=== PATIENT | male | born 1955 | race Caucasian/White ===

== ENCOUNTER 2016-12-09 10:33 | Inpatient (IN) ==
--- NOTE | 2016-12-09 11:01 | PROVIDER DOCUMENTATION ---
HPI-General Adult - General Chief Complaint: Weakness Stated Complaint: CHILLS Time Seen by Provider: 12/09/16 10:58 Source: patient Allergies/Adverse Reactions: Patient Allergies Allergy/AdvReac Type Severity Reaction Status Date / Time No Known Allergies Allergy Verified 12/09/16 10:45 - History of Present Illness -Gen Adult Nature of Presenting Problems: patient is a 61 yo/ M that presents to the ER with generalized weakness, body aches, and chills x 1 week. No fever, n/v/d, or cough. Reports out of Metformin. Poor appetite but has been thirsty more than normal. Location of Pain/Injury: reports: generalized Quality of Pain: reports: aching Severity: reports: moderate Onset/Duration: reports: gradual, 1 week ago Timing: reports: still present, getting worse Context/Activities at Onset: reports: none Modifying Factors: improves with: nothing Associated Symptoms: reports: dizziness, fever/chills (chills), muscle aches, weakness. denies: chest pain, diarrhea, genitourinary problems, headaches, nausea, shortness of breath, vomiting Similar Symptoms Previously?: No Recently seen or treated by another doctor?: No Review of Systems - Adult - REVIEW OF SYSTEMS - ADULT Constitutional: reports: chills. denies: fever Eyes: reports: no symptoms reported Ears, Nose, Mouth & Throat: reports: no symptoms reported Cardiovascular: denies: chest pain, orthopnea, palpitations Respiratory: denies: cough, shortness of breath, wheezing Gastrointestinal: reports: abdominal pain. denies: diarrhea, nausea, vomiting Genitourinary: reports: no symptoms reported Musculoskeletal: reports: muscle aches, muscle weakness Integumentary: reports: no symptoms reported Neurological: reports: dizziness/vertigo. denies: headache/migraines, loss of balance, numbness Psychiatric: reports: no symptoms reported Endocrine: reports: increased thirst. denies: polyuria Hematologic/Lymphatic: reports: no symptoms reported Allergic/Immunologic: reports: no symptoms reported All Other Systems: Reviewed and Negative Past History - Adult - PAST MEDICAL HISTORY-ADULT Review of Records: reports: Old Records Reviewed, Nursing Assessment Review, Medications Reviewed Endocrine/Immune: reports: Diabetes - PRIOR SURGERIES/PROCEDURES Surgical/Procedure History: reports: none - IMMUNIZATION STATUS Childhood Immunizations: See Nurse Assessment Flu Vaccine: See Nurse Assessment - FAMILY HISTORY Family History: reviewed, not pertinent - SOCIAL HISTORY Smoking: cigarettes, greater than 1 pack/day Provider spent 3-5 mins advising pt. on dangers of tobacco.: Discussed manners to quit use, and f/u contacts for add'l counseling. Living Situation: family Physical Exam-General - PHYSICAL EXAM-ADULT Initial Vital Signs Reviewed: Yes - CONSTITUTIONAL General Appearance: alert, mild distress, moderate distress - EYES Eyes: PERRL/EOMI, pink conjunctivae - HEAD, EARS, NOSE, MOUTH & THROAT HENMT: normocephalic/atraumatic, normal ENT inspection, other (dry oral mucosa) - NECK Neck: full range of motion, normal inspection - RESPIRATORY Respiratory: lungs clear, normal breath sounds, no respiratory distress, no accessory muscle use - CARDIOVASCULAR Cardiovascular: no JVD, no murmur, tachycardia - GASTROINTESTINAL (ABDOMEN) Abdominal Exam: normal bowel sounds, non tender, soft, no organomegaly, no pulsatile mass - MUSCULOSKELETAL Back Exam: normal inspection, no vertebral tenderness Extremity: normal range of motion, normal inspection, no pedal edema - SKIN Integumentary: normal color, warm/dry - 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, no motor/sensory deficits - PSYCHIATRIC Psych/Mental Status: normal mood/affect, normal thought content, normal thought process, oriented x 3 Progress - PLAN OF CARE/RESULTS Progress/Plan/Lab Results: Vital Signs - 8 hr 12/09/16 10:40 Temperature 97.3 F L Pulse Rate 141 H Respiratory Rate 18 O2 Sat by Pulse Oximetry 99 Orders Category Date Time Status Cardiac Monitoring DIRECTED Care 12/09/16 10:47 Active Saline Loc NOW Care 12/09/16 10:47 Active CHEST-2 VIEWS [RAD] Stat Exams 12/09/16 10:47 Ordered BLOOD CULTURE [BLDCUL] Stat Lab 12/09/16 10:47 Ordered CBC WITH ELECTRONIC DIFF [HEME] Stat Lab 12/09/16 10:47 Ordered CK PROFILE [SP CHEM] Stat Lab 12/09/16 10:47 Ordered COMPREHENSIVE METABOLIC PANEL [CHEM] Stat Lab 12/09/16 10:47 Ordered LACTATE, PLASMA [CHEM] Stat Lab 12/09/16 10:47 Ordered MAGNESIUM [CHEM] Stat Lab 12/09/16 10:47 Ordered PRO B-NATRIURETIC PEPTIDE Stat Lab 12/09/16 10:[address] Or[address]IME WITH INR PL [COAG] Stat Lab 12/09/16 10:[address] [COAG] Stat Lab 12/09/16 10:47 Ordered TROPONIN T Stat Lab 12/09/16 10:[address] W/POSS RFLX CULT [URINALYSIS] Stat Lab 12/09/16 10:47 Uncollected EKG [EKG] Stat Ther 12/09/16 10:47 Ordered Vital Signs - 24 hr 12/09/16 10:40 12/09/16 10:45 12/09/16 11:00 Temperature 97.3 F L Pulse Rate 141 H 137 H 136 H Respiratory Rate 18 13 14 Blood Pressure 109/83 111/72 O2 Sat by Pulse Oximetry 99 100 99 12/09/16 11:26 Temperature Pulse Rate 132 H Respiratory Rate 16 Blood Pressure 106/77 O2 Sat by Pulse Oximetry 97 Orders Category Date Time Status Cardiac Monitoring DIRECTED Care 12/09/16 10:47 Active Saline Loc NOW Care 12/09/16 10:47 Active CHEST-2 VIEWS [RAD] Stat Exams 12/09/16 10:47 Completed BLOOD CULTURE [BLDCUL] Stat Lab 12/09/16 10:47 Ordered CBC WITH ELECTRONIC DIFF [HEME] Stat Lab 12/09/16 10:50 Completed CK PROFILE [SP CHEM] Stat Lab 12/09/16 10:50 Completed COMPREHENSIVE METABOLIC PANEL [CHEM] Stat Lab 12/09/16 10:50 Completed LACTATE, PLASMA [CHEM] Stat Lab 12/09/16 11:09 Completed MAGNESIUM [CHEM] Stat Lab 12/09/16 10:50 Completed PRO B-NATRIURETIC PEPTIDE Stat Lab 12/09/16 10:[address]IME WITH INR PL [COAG] Stat Lab 12/09/16 10:[address] [COAG] Stat Lab 12/09/16 10:50 Completed TROPONIN T Stat Lab 12/09/16 10:50 Completed TSH Stat Lab 12/09/16 10:[address] W/POSS RFLX CULT [URINALYSIS] Stat Lab 12/09/16 10:47 Uncollected 0.9% Sodium Chloride Inj [Ns] 1,000 ml Med 12/09/16 11:10 Discontinued .ROUTE As Directed 0.9% Sodium Chloride Inj [Ns] 1,000 ml Med 12/09/16 11:12 Active IV 999 mls/hr EKG [EKG] Stat Ther 12/09/16 10:47 Draft Laboratory Tests 12/09/16 12/09/16 12/09/16 10:50 10:50 10:50 WBC RBC Hgb Hct MCV MCH MCHC RDW Std Deviation Plt Count MPV Immature Gran % (Auto) Neut % (Auto) Lymph % (Auto) Cedar % (Auto) Eos % (Auto) Baso % (Auto) Immature Gran # (Auto) Neut # (Auto) Lymph # (Auto) [place] # (Auto) Eos # (Auto) Baso # (Auto) PT INR APTT (Factor Assay) Sodium 124 L Potassium 4.4 Chloride 85 L Carbon Dioxide 22 L Anion Gap 18 BUN 25 H Creatinine 2.9 H Estimated GFR/1.73 m2 22 BUN/Creatinine Ratio 9 Glucose 387 H Calculated Osmolality 270 Calcium 9.8 Magnesium 1.6 Total Bilirubin 0.70 AST 19 ALT 7 L Alkaline Phosphatase 158 H Creatine Kinase 112 Troponin T 0.820 H* Yur-V-Hbeetzdamln Pept 30678 H Total Protein 8.7 H Albumin 4.0 Globulin 5.0 Albumin/Globulin Ratio 1.0 Plasma Lactate TSH 12/09/16 12/09/16 12/09/16 10:50 10:50 10:50 WBC 29.83 H RBC 4.45 L Hgb 12.8 L Hct 37.0 L MCV 83.1 MCH 28.8 MCHC 34.6 RDW Std Deviation 13.2 Plt Count 473 H MPV 9.3 Immature Gran % (Auto) 0.4 Neut % (Auto) 88.2 H Lymph % (Auto) 6.0 L [place] % (Auto) 5.2 Eos % (Auto) 0.0 Baso % (Auto) 0.2 Immature Gran # (Auto) 0.13 H Neut # (Auto) 26.28 H Lymph # (Auto) 1.79 [place] # (Auto) 1.56 H Eos # (Auto) 0.01 Baso # (Auto) 0.06 PT 14.0 INR 1.00 APTT (Factor Assay) 31.9 Sodium Potassium Chloride Carbon Dioxide Anion Gap BUN Creatinine Estimated GFR/1.73 m2 BUN/Creatinine Ratio Glucose Calculated Osmolality Calcium Magnesium Total Bilirubin AST ALT Alkaline Phosphatase Creatine Kinase Troponin T Jrz-H-Biocmftacep Pept Total Protein Albumin Globulin Albumin/Globulin Ratio Plasma Lactate TSH 9.67 H 12/09/16 11:09 WBC RBC Hgb Hct MCV MCH MCHC RDW Std Deviation Plt Count MPV Immature Gran % (Auto) Neut % (Auto) Lymph % (Auto) [place] % (Auto) Eos % (Auto) Baso % (Auto) Immature Gran # (Auto) Neut # (Auto) Lymph # (Auto) [place] # (Auto) Eos # (Auto) Baso # (Auto) PT INR APTT (Factor Assay) Sodium Potassium Chloride Carbon Dioxide Anion Gap BUN Creatinine Estimated GFR/1.73 m2 BUN/Creatinine Ratio Glucose Calculated Osmolality Calcium Magnesium Total Bilirubin AST ALT Alkaline Phosphatase Creatine Kinase Troponin T Fpq-U-Lqiumkzcsuq Pept Total Protein Albumin Globulin Albumin/Globulin Ratio Plasma Lactate 2.7 H TSH Result Diagrams: 12/09/16 10:50 12/09/16 10:50 - EKG 1 Time of EKG reading by physician:: 10:54 EKG Read and Signed by:: Nathen Velázquez EKG Interpretation (*Must complete 3 of following elements*): Abnormal Rate: 138 Rhythm: Sinus tachycardia [place]: normal QRS: normal - XRAY 1 XRAY Study: Chest Impression: Normal XRAY Interpretation: nad - CONSULTS/PCP/HOSPITALIST Notification #1 *Consult/PCP/Hospitalist*: ( 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) Time Discussed: 12:03 Consult Disposition: Will see in ED Departure - Departure Date of Disposition Decision: 12/09/16 Time of Disposition Decision: 12:06 DIAGNOSIS: Dehydration, PATRICK (acute kidney injury), Elevated troponin, Leukocytosis, Elevated lactic acid level Type 2 diabetes mellitus Qualifiers: Diabetes mellitus complication status: without complication Disposition: ADMITTED INPATIENT 09 Certified Medical Emergency: Emergent Condition: Stable Referrals and Follow-Ups: None,PCP [Primary Care Provider] - - Critical Care Note This patient required my direct & personal management of CC.: Yes Total Time (mins): 50 Critical Care Statement: This patient required my direct personal management to treat or rule out processes, the absence of which, could potentiallly result in sudden, clinically significant life or limb threatening deterioration. Attestation - Physician/ ARISTEO Attestation The physician spent face to face time with patient:: Yes Advanced Practice Provider documentation review:: Supervising physician onsite and consulted in the evaluation and care of this patient. The physician did have a face to face encounter with the patient.
--- NOTE | 2016-12-09 11:02 | EKG Report ---
Test Performed on : 12/09/2016 10:54:38 AM Test Reason : CP Blood Pressure : / mmHG Vent. Rate : 138 BPM Atrial Rate : 138 BPM P-R Int : 160 ms QRS Dur : 084 ms QT Int : 282 ms P-R-T Axes : 000 072 055 degrees QTc Int : 427 ms Sinus tachycardia. Otherwise normal ECG No previous ECGs available Unconfirmed Result
[2016-12-09] MEDS ORDERED: NS 1,000 ML ONE (11:10)
[2016-12-09] MEDS ORDERED: NS 1,000 ML IV ONE ×2 (11:12→12:07)
[2016-12-09 11:35] LABS: PTT PL 31.9 Seconds (22.6-43.9)
[2016-12-09 11:42] LABS: BASO% 0.2 % (0.0-0.8); EOS# 0.01 X1000 (0.0-0.7); HEMOGLOBIN 12.8 g/dL (14.0-18.0); IMM GRAN# 0.13 X1000 (0.0-0.04); IMM GRAN% 0.4 % (0.0-0.5); LYMPH# 1.79 X1000 (1.2-3.4); MANUAL DIFF NEEDED? NO; MCH 28.8 PG (27-31); MCHC 34.6 g/dL (33-37); MCV 83.1 FL (81-99); MONO# 1.56 X1000 (0.11-0.59); MONO% 5.2 % (1.7-9.3); MPV 9.3 FL (7.4-10.4); NEUT% 88.2 % (42.2-75.2); PLT 473 X1000 (130-400); RBC 4.45 XMIL (4.7-6.1)
--- NOTE | 2016-12-09 11:43 | Diag Imaging Result Doc PS360 ---
EXAM: CHEST-2 VIEWS HISTORY: CP TECHNIQUE: PA and Lateral chest x-ray COMPARISON: None. FINDINGS: The cardiomediastinal silhouette is within normal limits. The pulmonary vasculature is not congested. No infiltrate, effusion, or pneumothorax is appreciated. IMPRESSION: No acute cardiopulmonary abnormality is identified. Electronically signed by Marilee Judge 12/09/2016 11:41 AM
[2016-12-09 11:47] LABS: CALCIUM 9.8 mg/dL (8.8-10.2); MAGNESIUM 1.6 mg/dL (1.5-2.7); POTASSIUM 4.4 mmol/L (3.5-5.1); TOTAL BILIRUBIN 0.7 mg/dL (0.20-1.00); TOTAL PROTEIN 8.7 g/dL (6.3-8.3)
[2016-12-09] MEDS ORDERED: CARDIZEM IV ONE ×2 (15:29→15:45)
[2016-12-09] MEDS ORDERED: CARDIZEM ONE ×2 (15:29→15:45)
--- NOTE | 2016-12-09 15:31 | EKG Report ---
Test Performed on : 12/09/2016 3:28:15 PM Test Reason : repeat Blood Pressure : / mmHG Vent. Rate : 165 BPM Atrial Rate : 166 BPM P-R Int : 000 ms QRS Dur : 086 ms QT Int : 300 ms P-R-T Axes : 000 022 012 degrees QTc Int : 497 ms Supraventricular tachycardia. with frequent premature ventricular complexes. Nonspecific ST abnormality Abnormal ECG When compared with ECG of 09-DEC-2016 10:54, (Unconfirmed) premature ventricular complexes. are now present ST now depressed in Inferior leads ST now depressed in Anterior leads Unconfirmed Result
[2016-12-09] MEDS ORDERED: CARDIZEM 100 MG/NS 100 MG/100 ML IVPB IV SCH (16:00)
[2016-12-09] MEDS ORDERED: CARDIZEM 100 MG/NS 100 MG/100 ML IVPB ONE (16:05)
[2016-12-09] MEDS: CARDIZEM 100 MG/NS 100 MG/100 ML IVPB IV SCH (16:10)
--- NOTE | 2016-12-09 16:23 | ED EKG INTERP ---
EKG Interpretation - EKG Time of EKG reading by physician:: 16:22 EKG Read and Signed by:: Nathen Velázquez EKG Interpretation (*Must complete 3 of following elements*): Abnormal Rate: 132 Rhythm: sinus tachycardia [place]: normal QRS: normal [place] Interval: normal ST Wave: non-specific ST changes Attestation - Physician/ ARISTEO Attestation The physician spent face to face time with patient:: Yes Advanced Practice Provider documentation review:: Supervising physician onsite and consulted in the evaluation and care of this patient. The physician did have a face to face encounter with the patient.
[2016-12-09 17:06] LABS: ALBUMIN 3.6 g/dL (3.5-5.0); CALCIUM 9.1 mg/dL (8.8-10.2); POTASSIUM 4.3 mmol/L (3.5-5.1); TOTAL BILIRUBIN 0.5 mg/dL (0.20-1.00); TOTAL PROTEIN 6.9 g/dL (6.3-8.3)
--- NOTE | 2016-12-09 17:08 | EKG Report ---
Test Performed on : 12/09/2016 3:37:22 PM Test Reason : svt Blood Pressure : / mmHG Vent. Rate : 158 BPM Atrial Rate : 107 BPM P-R Int : 000 ms QRS Dur : 084 ms QT Int : 314 ms P-R-T Axes : 000 010 009 degrees QTc Int : 509 ms Supraventricular tachycardia. Nonspecific ST abnormality Abnormal ECG When compared with ECG of 09-DEC-2016 15:36, (Unconfirmed) premature ventricular complexes. are no longer present Unconfirmed Result
--- NOTE | 2016-12-09 17:08 | EKG Report ---
Test Performed on : 12/09/2016 4:18:57 PM Test Reason : svt Blood Pressure : / mmHG Vent. Rate : 132 BPM Atrial Rate : 132 BPM P-R Int : 132 ms QRS Dur : 084 ms QT Int : 296 ms P-R-T Axes : 048 056 065 degrees QTc Int : 438 ms Sinus tachycardia. Nonspecific ST abnormality Abnormal ECG When compared with ECG of 09-DEC-2016 15:37, (Unconfirmed) ST more depressed in Lateral leads Unconfirmed Result
[2016-12-09] MEDS: HUMALOG DOSE (PARKWAY) SUBQ SCH ×2 (20:48→22:37)
[2016-12-09 21:27] LABS: BILIRUBIN URINE NEGATIVE (NEGATIVE); BLOOD URINE 4+ (NEGATIVE); CLARITY CLEAR (CLEAR); COLOR YELLOW; LEUKOCYTES URINE 2+ (NEGATIVE); NITRITE URINE NEGATIVE (NEGATIVE); PROTEIN URINE 1+(30 mg/dL) mg/dL (NEGATIVE); SP GRAVITY URINE 1.015; UROBILINOGEN URINE NORMAL
[2016-12-09 21:28] LABS: URINE CULTURE PL NEEDED? YES; URINE EPITHELIAL CELLS <10 /HPF (<10); URINE RBC <10 /HPF (<10); URINE WBC 20-40 /HPF (<10)
[2016-12-09 21:29] LABS: URINE CAST NONE SEEN /LPF; URINE CRYSTAL NONE SEEN /HPF; URINE SOURCE CLEAN CATCH
[2016-12-09] MEDS: ZOSYN 3.375 GM in NS 50 ML IV SCH (22:14)
[2016-12-10] MEDS: CARDIZEM 100 MG/NS 100 MG/100 ML IVPB IV SCH (03:37)
[2016-12-10] MEDS: ZOSYN 3.375 GM in NS 50 ML IV SCH ×4 (03:37→21:19)
[2016-12-10] MEDS: HUMALOG DOSE (PARKWAY) SUBQ SCH ×4 (06:02→21:18)
[2016-12-10 06:28] LABS: BASO% 0.2 % (0.0-0.8); EOS# 0.02 X1000 (0.0-0.7); EOS% 0.1 % (0.0-10.0); HEMATOCRIT 29.2 % (42.0-52.0); IMM GRAN# 0.06 X1000 (0.0-0.04); IMM GRAN% 0.3 % (0.0-0.5); LYMPH# 1.41 X1000 (1.2-3.4); LYMPH% 7.5 % (20.5-51.1); MANUAL DIFF NEEDED? YES; MCH 28.7 PG (27-31); MCHC 34.2 g/dL (33-37); MCV 83.9 FL (81-99); MONO# 1.44 X1000 (0.11-0.59); MONO% 7.7 % (1.7-9.3); MPV 9.1 FL (7.4-10.4); NEUT% 84.2 % (42.2-75.2); PLT 350 X1000 (130-400); RBC 3.48 XMIL (4.7-6.1)
[2016-12-10 06:48] LABS: CALCIUM 8.8 mg/dL (8.8-10.2); POTASSIUM 4.4 mmol/L (3.5-5.1); TOTAL BILIRUBIN 0.4 mg/dL (0.20-1.00); TOTAL PROTEIN 6.7 g/dL (6.3-8.3)
[2016-12-10 07:28] LABS: BANDS 2 % (0-1); LYMPHS 6 % (21-51); MONO 5 % (1-9)
[2016-12-10] MEDS: NICODERM PATCH TD SCH (11:12)
[2016-12-10] MEDS: TOPROL XL PO SCH (11:13)
--- NOTE | 2016-12-10 14:36 | ECHO REPORT ---
ORDER DATE: 12/09/2016 INTERPRETING PHYSICIAN: Dr. Scooter Oakley ECHOCARDIOGRAPHIC MEASUREMENTS: Interventricular septum: 1.0 cm. Left ventricular posterior wall: 0.9 cm. Diastolic diameter: 5.4 cm. Left atrium: 3.2 cm. Aortic root: 3.4 cm. SUMMARY OF THE 2-DIMENSIONAL IMAGIN. Normal left ventricular cavity size. Estimated ejection fraction of 55-60%. There is hypokinesia in the base of the inferior wall. 2. Aortic valve leaflets are trileaflet. Mitral valve was normal. Tricuspid valve was normal. 3. Peak velocity across the aortic valve less than 2 m/sec. There is no aortic stenosis or regurgitation. There is mild mitral regurgitation. Mild tricuspid regurgitation. Peak velocity across the tricuspid valve was 2 m/sec. There is no pericardial effusion or obvious intracardiac mass or thrombus seen. CONCLUSIONS: Normal left ventricular cavity size. Estimated ejection fraction of 55-60%. There is hypokinesis in the base of the inferior wall. cc: MD Nathen King MD
[2016-12-10] MEDS: NS 1,000 ML IV SCH (15:15)
[2016-12-10] MEDS: ASPIRIN PO SCH (15:15)
--- NOTE | 2016-12-10 15:23 | CONSULTATION ---
DATE OF CONSULTATION: 12/10/2016 REASON FOR CONSULTATION: Cardiology consulted for abnormal cardiac enzymes, tachycardia, urinary tract infection patient is admitted with. HISTORY: Nathen Youssef is a 61-year-old gentleman who is a smoker. He is a diabetic and ran out of his metformin medications. He presents with having chills without any fevers and is not feeling well. Denies chest pain. He has noticed some palpitations. There is no dizziness or syncope. He came to the emergency room and was noted to have a heart rate of 160 beats per minute. Sinus tachycardia versus supraventricular tachycardia. Started on a Cardizem drip. His laboratory examination revealed urinalysis was abnormal with positive urine protein, so WBC is increased. Urine microscopic WBC 20-40. CBC showed a WBC of 29.83. Hemoglobin 12.8, hematocrit 37, platelet count of 473,000. Chemistry revealed a sodium 128, potassium 4.3, BUN 26, creatinine 2.9, blood glucose 328, [place] [address]. Troponin abnormal at 0.60 and 0.963. Prior to this, the patient has not had any cardiac symptoms. He says he has not had any chest pain. There is no associated chest pains associated with this admission. REVIEW OF SYSTEMS: A 14-point review of system was done. Respiratory System: No recent cough. He says he has low-grade fevers with chills. System: As above. Endocrine System stable. Central Nervous System: No focal weakness to suggest a CVA, TIA. GI System: There is no history of nausea, vomiting, or diarrhea. HOME MEDICATION: At home, he takes metformin. CURRENT MEDICATIONS: 1. He has been started on metoprolol 25 mg daily. 2. Zosyn. 3. Normal saline. 4. Enteric-coated aspirin 81 mg a day. 5. Insulin as required per protocol. ALLERGIES: He is not known to be allergic to any medications. SOCIAL HISTORY: He does not drink alcohol. He smokes a pack of cigarettes a day and has smoked for many years. FAMILY HISTORY: There is no premature family history of coronary artery disease. PHYSICAL EXAMINATION: Vital Signs: Blood pressure was 139/87. Cardiovascular System: Normal jugular venous pressure. First and second heart sounds were heard. There was no S3 gallop. Neck: There is no thyromegaly. No carotid bruit. Respiratory System: Normal air entry. There was no crepitations or rhonchi. Abdomen: Soft, nontender. There was no guarding or rigidity. Bowel sounds were heard. Central Nervous System: Alert and was moving all 4 extremities. Extremities: Examination of extremities revealed no pedal edema. HEENT: Atraumatic, normocephalic. Pupils were equal and reacting to light. ASSESSMENT AND PLAN: Mr. Nathen Youssef is a 61-year-old gentleman with history of diabetes who comes with complaints of having had low-grade fevers and chills and was noted to have urine infection. Blood cultures and urine cultures are pending. From a cardiac standpoint, he was noted to have a heart rate of 160. Electrocardiogram looks like sinus tachycardia. Regardless, he was started on a Cardizem drip. Subsequently , he has been in sinus tachycardia. His echocardiogram was done which revealed normal left ventricular systolic function; however, there is basal hypokinesis in the inferior wall of unknown significance. PROBLEM LIST: 1. Worsening diabetes. 2. Renal insufficiency, acute, probably secondary to urinary tract infection. He has been started on antibiotics. Would recommend continuing the antibiotics and IV fluids. 3. From a cardiac standpoint, his troponin is abnormal. No chest pain. Electrocardiogram does not reveal any ST-T changes to suggest ischemia. These are in the setting of acute renal insufficiency. Regardless, we will continue on the aspirin. He has been switched to beta- blockers for his tachycardia. We will continue that. 4. Once he is out of this infection and renal insufficiency, we will plan for a stress test to assess for ischemia. In the interim, would recommend checking his labs as well as kidney functions as planned. Thank you for the consult. We will follow hospital course. Sincerely, cc: Scooter Oakley MD [facility]
--- NOTE | 2016-12-10 17:02 | HISTORY AND PHYSICAL ---
CHIEF COMPLAINT: Chills and generalized weakness. HISTORY OF PRESENT ILLNESS: This is a 61-year-old male with a history of diabetes and tobacco use. He presented to the emergency room complaining of about a week of fever, chills, and generalized body aches, just not feeling well. He denied chest pain, dizziness or syncope. He does state that he had some palpitations intermittently through this time. On arrival to the emergency room his heart rate was 160, and was in sinus tach versus supraventricular tachycardia for which he was started on a Cardizem drip and placed in ICU. He was noted to have troponins of 0.8 and 0.6, along with a creatinine of 2.9, 2.6. TSH of 9.67. Prior to this episode the patient has had no chest pain, palpitations, syncope, dizziness, or any history of any cardiac symptoms. Nor is he aware of having elevated creatinine or any kind of renal failure in the past. PAST MEDICAL HISTORY: Diabetes mellitus. PAST SURGICAL HISTORY: Denies. SOCIAL HISTORY: He does smoke about a pack a day. Denies alcohol or illicit drug use. HOME MEDICATIONS: None. REVIEW OF SYSTEMS: A 14 point review of systems is discussed with patient with pertinent positives being stated in HPI. He denied shortness of breath, cough, PND, orthopnea, any chest pain, syncope, dizziness, nausea, vomiting, diarrhea, constipation, black or bloody vomitus, black or bloody stools, hematuria, dysuria, frequency, urgency. PHYSICAL EXAMINATION: GENERAL: This is a 61-year-old male who is sitting up in the bed, in no distress. VITAL SIGNS: Blood pressure is 120/76, with a heart rate of 100, respirations are 18, temperature is 98.6 degrees with O2 saturations of 99%-100% on room air. CARDIOVASCULAR: Regular rate and rhythm. S1 and S2 appreciated. PULMONARY: Breath sounds are clear with no increased work of breathing noted. GASTROINTESTINAL: Abdomen is soft, nontender, nondistended. Bowel sounds in all 4 quadrants. BACK: No CVAT. No spine tenderness. MUSCULOSKELETAL: Good range of motion of joints. EXTREMITIES: No clubbing, cyanosis, or edema. Calves nontender. Pulses are palpable x4. NEUROLOGIC: He is alert and oriented x3 with cranial nerves 2-12 grossly intact. DIAGNOSTICS: Labs as stated above. EKG: Multiple EKG's were performed with his admission EKG being sinus tach at a rate of 138, SVT at a rate of 165, SVT versus sinus tach, and sinus tach at a rate of 132. ASSESSMENT AND PLAN: 1. Renal insufficiency. We are unsure of his baseline creatinine or baseline renal function. Urinalysis does look consistent with a urinary tract infection and his culture is pending. We will gently hydrate and will trend his labs. We will continue with antibiotic coverage of Zosyn and any further change will be culture driven. 2. Elevated troponin. He has had no chest pain. However he has had 2 abnormal troponins. We will get a stat troponin off his a.m. blood, then repeat a troponin and consult Cardiology. His EKGs did not reveal any ST changes to suggest ischemia, this in a setting of renal insufficiency. We will start him on a baby aspirin, consult Cardiology, and to follow. 3. Urinary tract infection. We are waiting on culture results. We will continue with Zosyn. 4. Diabetes mellitus. The patient did run out of his metformin. He does not check his blood sugars at home. We have encouraged him to begin checking blood sugars and take an active role in getting his diabetes under control. He will be placed on pattern blood glucose with sliding scale insulin. At present, we will not restart metformin due to his renal function. 5. Tobacco abuse. Nicotine patch. Dictated by HOANG Mcclain for Asim Winters MD cc: HOANG Mcclain MD
[2016-12-11] MEDS: NS 1,000 ML IV SCH (01:33)
[2016-12-11] MEDS: ZOSYN 3.375 GM in NS 50 ML IV SCH (04:49)
[2016-12-11 06:19] LABS: HEMATOCRIT 28.7 % (42.0-52.0); HEMOGLOBIN 9.6 g/dL (14.0-18.0); MCH 28.1 PG (27-31); MCHC 33.4 g/dL (33-37); MCV 83.9 FL (81-99); MPV 8.7 FL (7.4-10.4); RBC 3.42 XMIL (4.7-6.1)
[2016-12-11 06:31] LABS: AGAP 13; ALBUMIN 2.8 g/dL (3.5-5.0); ALKALINE PHOSPHATASE 97 U/L (32-122); BUN 31 mg/dL (8-22); CALCIUM 9.2 mg/dL (8.8-10.2); CHLORIDE 97 mmol/L (98-107); COSMO 278; GOT 7 U/L (10-34); GPT < 5 U/L (10-44); MAGNESIUM 1.6 mg/dL (1.5-2.7); POTASSIUM 4.4 mmol/L (3.5-5.1); SODIUM 132 mmol/L (136-145); TCO2 22 mmol/L (25-35); TOTAL PROTEIN 6.5 g/dL (6.3-8.3)
[2016-12-11] MEDS: HUMALOG DOSE (PARKWAY) SUBQ SCH ×4 (06:50→21:05)
[2016-12-11] MEDS: ASPIRIN PO SCH (09:39)
[2016-12-11] MEDS: NICODERM PATCH TD SCH (09:39)
[2016-12-11] MEDS: TOPROL XL PO SCH (09:39)
[2016-12-11] MEDS ORDERED: NS 1,000 ML IV SCH (11:38)
[2016-12-11] MEDS: ZOSYN 2.25 GM in NS 50 ML IV SCH ×3 (11:52→23:09)
--- NOTE | 2016-12-11 20:12 | PROGRESS NOTE ---
DATE: 12/11/2016 SUBJECTIVE: Patient currently without any new complaints. States he is feeling much better. He is asking if he can go home. OBJECTIVE: Vital Signs: Reviewed. Temperature 97 degrees, pulse 87, respiratory rate 18, blood pressure 137/85. General: Patient is awake, alert, oriented. Currently in no real respiratory distress. Neck: Supple. CARDIOVASCULAR: Regular rate. Chest: Clear. Abdomen: Soft. Extremities: Moves all extremities. ASSESSMENT: 1. Diabetes. At this point, we will stop his Glucophage due to his acute renal failure. Place him on Januvia 50 mg once a day. 2. Acute renal failure. Uncertain if this is chronic in nature. He does not remember the last time he had labs drawn. 3. Gram-negative mumtaz urinary tract infection. We will continue in the hospital until we get full cultures on this. Hopefully he can be discharged home in the a.m. cc: Asim Winters MD
[2016-12-12] MEDS: ZOSYN 2.25 GM in NS 50 ML IV SCH (04:44)
[2016-12-12 06:00] LABS: HEMATOCRIT 27.9 % (42.0-52.0); HEMOGLOBIN 9.2 g/dL (14.0-18.0); MCH 27.8 PG (27-31); MCV 84.3 FL (81-99); MPV 8.7 FL (7.4-10.4); RBC 3.31 XMIL (4.7-6.1)
[2016-12-12 06:20] LABS: AGAP 13; ALBUMIN 2.7 g/dL (3.5-5.0); ALKALINE PHOSPHATASE 92 U/L (32-122); BUN 26 mg/dL (8-22); CALCIUM 9.1 mg/dL (8.8-10.2); CHLORIDE 102 mmol/L (98-107); COSMO 281; GOT 6 U/L (10-34); GPT < 5 U/L (10-44); MAGNESIUM 1.6 mg/dL (1.5-2.7); POTASSIUM 4.3 mmol/L (3.5-5.1); SODIUM 136 mmol/L (136-145); TCO2 22 mmol/L (25-35); TOTAL PROTEIN 6.4 g/dL (6.3-8.3)
[2016-12-12] MEDS: HUMALOG DOSE (PARKWAY) SUBQ SCH ×2 (07:06→11:34)
[2016-12-12 08:01] VITALS: BP 125/74
[2016-12-12] MEDS: NICODERM PATCH TD SCH (08:36)
[2016-12-12] MEDS: ASPIRIN PO SCH (08:36)
[2016-12-12] MEDS: TOPROL XL PO SCH (08:36)
[2016-12-12] MEDS ORDERED: SEPTRA DS PO SCH (09:00)
--- NOTE | 2016-12-25 18:14 | DISCHARGE SUMMARY ---
ADMISSION DATE: 12/09/2016 DISCHARGE DATE: 12/12/2016 DISCHARGE DIAGNOSES: 1. Escherichia coli urinary tract infection. Patient will be discharged home on Bactrim. 2. Chronic renal insufficiency. 3. Diabetes. 4. Elevated troponin. CONSULTATIONS: None. PROCEDURES: None. BRIEF HOSPITAL COURSE: Patient is a 61-year-old male, who was admitted as on the [facility]. Treated in usual fashion. Placed on antibiotics. His culture returned positive for E. coli UTI that was highly sensitive to Bactrim. Patient had an uneventful course and therefore he will be discharged home. DISPOSITION: The patient will be discharged home on Bactrim. We will continue to follow up with his primary care physician. Further orders as needed. 35 minutes were spent in total care. cc: Asim Winters MD
== END 2016-12-12 12:20 | disposition home or self-care (01) ==
LOC: P.ED 10:33 → P.ICU 15:47 → P.MEDSURG 12-10 13:25
PROVIDERS: ATTEND Family Medicine